=== PATIENT | female | born 1945 | race Caucasian/White ===

== ENCOUNTER → 2016-08-19 | Outpatient (CLI) | payer OTHER ==
[~2016-08-19] MED LIST: ACET-1311 PO; ATV1HP PO; CALC200T PO; LEVO50TA6 PO; PRLSR20 PO; SIMV40TA2 PO; SOLI10TA2 PO
--- NOTE | 2016-08-19 14:35 | MAMMOGRAPHY REPORT ---
UNILATERAL RIGHT DIGITAL DIAGNOSTIC MAMMOGRAM TOMOSYNTHESIS WITH CAD AND TARGETED RIGHT ULTRASOUND: 08/19/2016 CLINICAL HISTORY: 71-year-old woman presents for follow-up of 2 adjacent hypoechoic masses in the 10 :00 right breast seen on ultrasound. She was originally called back from screening in January 2016 for an asymmetry in the superior right breast on the MLO view. TECHNIQUE: Right breast tomosynthesis in addition to standard 2D mammography was performed. Current study was also evaluated with a Computer Aided Detection (CAD) system. COMPARISON: Comparison is made to exams dated: 02/19/2016 ultrasound, 02/19/2016 mammogram, 016 mammogram, 01/29/2015 mammogram, 12/26/2013 mammogram, and 06/12/2013 ultrasound - [facility]. BREAST COMPOSITION: There are scattered areas of fibroglandular density in the right breast. FINDINGS: The parenchymal pattern of the right breast is similar to the 2012 exam. There are a few benign-appearing calcifications. The asymmetry in the superior middle one third of the breast on th e MLO view is no longer seen, confirming benignity. No obvious new mass, focal area of architectura l distortion or suspicious calcifications are seen. Repeat targeted ultrasound was performed in the 10:00 axis of the right breast to reevaluate the 2 a djacent hypoechoic masses seen on prior ultrasound. (Some of the ultrasound images are mislabeled a s 11:00) In the 10:00 breast, 3 cm from the nipple, 2 hypoechoic lesions are again identified. The first measures approximately 3.6 x 3.8 x 3.9 mm, and the second measures 2.5 x 2.3 x 4.3 mm. The m argins are more ill-defined comparing to the prior ultrasound although the sizes do not appear signi ficantly changed. Nevertheless, given the microlobulated and indistinct nature of these masses on t he current exam, they are indeterminate and warranting further evaluation with tissue sampling. IMPRESSION: ACR BI-RADS CATEGORY 4: SUSPICIOUS, TARGETED ULTRASOUND ACR BI-RADS CATEGORY 4: SUSPICI OUS 1. Ultrasound guided core needle biopsy is recommended for 2 adjacent subcentimeter hypoechoic micr olobulated solid versus cystic masses in the 10:00 right breast, 3 cm from the nipple. These results and recommendations were discussed with the patient at the time of the exam. She tenta tively scheduled the biopsy prior to leaving our department. Approximately 10% of breast cancers are not detected with mammography. A negative mammographic repor t should not delay biopsy if a clinically suggestive mass is present. Elvira Barillas M.D. ay/:08/19/2016 12:53:54 Manager Operating: Hannah VALENTINE(T[place]u)([place]), [facility] letter sent: Abnormal 4/5 BI-RADS Code: ACR BI-RADS Category 4: Suspicious Ultrasound BI-RADS: ACR BI-RADS Category 4: Suspic ious
== END | disposition home or self-care (01) ==
LOC: C.MAMM 10:37
PROVIDERS: ATTEND Physician Assistant
DX: R92.2 Inconclusive mammogram (principal); N64.89 Other specified disorders of breast

== ENCOUNTER → 2016-08-31 | Outpatient (CLI) | payer OTHER ==
--- NOTE | 2016-08-31 11:50 | Discharge Instructions ---
Discharge Instructions Procedure Procedure Date: August 31, 2016. Reason for visit: Right Masses. Discharge Discharge Date: August 31, 2016. Discharge Diagnosis: post right breast ultrasound guided core biopsy Instructions Activity Recommendations: Additional Limitations (see below) Return to School/Work: no limitations Recommended Home Diet: No Limitations Provider Instructions: ACTIVITY RECOMMENDATIONS: * No lifting, pushing, pulling or exercising the affected side for three days. RETURN TO SCHOOL/WORK: * You may return to work/school after the procedure, but do not perform any strenuous activities for 24 to 48 hours. MEDICATIONS: * Tylenol (two 325 mg) every four to six hours if needed for mild pain (if not allergic to Tylenol). DIET: * Resume previous diet. SPECIAL CARE INSTRUCTIONS: * Keep biopsy site dry for 24 hours. May shower after 24 hours, but do not soak (bathe) incision. * May remove Tegaderm (plastic patch) tomorrow AFTER showering. * Leave the steri-strips on for one week. Allow the steri-strips to fall off by themselves. If not off after one week, you may remove them. You may place a Bandaid crosswise over the strips, if desired. * Apply ice 10 minutes on and 10 minutes off as needed. * Wear a bra at bedtime to sleep more comfortably for 2-3 days. * Your referring physician should have the results after approximately 5 to 7 business days. * Call for unusual bleeding, fever, drainage, etc or if you have any questions call [phone] during normal business hours or after hours call Dr Barillas, . FOLLOW UP VISIT: Follow-up with Referring Physician as scheduled. Allergies Coded Allergies: Grape (Unverified Allergy, Unknown, ., 05/06/13) Blaine Fiore Recommendations: Call your doctor if: * Temperature above 101 degrees * Pain not relieved by pain medicine ordered * There is increased drainage or redness from any incision * You have any unanswered questions or concerns. Your Doctors Instructions noted above were prepared by provider Elvira Barillas. Patient Signature Section: Patient Instructions Signature Page Twyla Gordon Patient (or Guardian) Signature/Date: I have read and understand the instructions given to me by my caregivers. Caregiver/RN/Doctor Signature/Date: The above-named patient and/or guardian has received patient instructions on this date. + Original Patient Signature Page (only) stays with chart. Please make copy for patient.
--- NOTE | 2016-08-31 14:26 | MAMMOGRAPHY REPORT ---
ULTRASOUND GUIDED BIOPSY RIGHT BREAST: 08/31/2016 CLINICAL HISTORY: 2 adjacent nearly abutting hypoechoic subcentimeter solid versus cystic masses in the 10:00 to 10:30 right breast, 3 cm from the nipple. Patient presented for ultrasound-guided core needle biopsy. COMPARISON: Comparison is made to exams dated: 08/19/2016 mammogram, 02/19/2016 ultrasound, 02/19/20 16 mammogram, 02/03/2016 mammogram, 01/29/2015 mammogram, and 12/26/2013 mammogram - [facility]. PATIENT CONSENT: The procedure, risks and benefits were discussed with the patient and informed writ ten consent was obtained. Specific risks to this procedure include: bleeding, infection, puncture of adjacent structure, nontarget biopsy, sampling error, metal allergy and medication reaction. PROCEDURE DESCRIPTION: A time out was performed and the right breast was agreed as the site of biops y. The skin was prepped and draped in the usual sterile fashion. The adjacent hypoechoic solid versu s cystic masses in the 10:00 to 10:30 right breast or chosen as the target for biopsy. Subcutaneous and intraparenchymal 1% buffered lidocaine was administered as local anesthesia. A skin incision was made. Through the incision, 5 samples were taken with a 14 gauge Achieve biopsy device. A metallic marker was placed at the biopsy site, between the 2 masses. Hemostasis was achieved after manual co mpression. The patient tolerated the procedure well and there was no immediate complication. The sa mples were sent to pathology department in an appropriately labeled container. The rounded mass was noted to be decreasing in size after biopsy samples, suggesting cystic nature. Postprocedure right CC and ML 2-D digital and tomosynthesis images were obtained. A new ribbon-shap ed metallic biopsy marker and no significant hematoma is identified in the 10:00 middle one third of the right breast, at the site of the biopsied hypoechoic adjacent solid versus cystic masses identi fied on ultrasound. IMPRESSION: ULTRASOUND GUIDED BIOPSY Status post ultrasound-guided core needle biopsy of 2 adjacent indeterminate solid versus cystic mas ses in the 10:00 to 10:30 right breast, with biopsy marker placed at the site. The patient will receive notification of the biopsy results from her referring physician. Elvira Barillas M.D. ay/:08/31/2016 12:10:50 Supervisor Special Education: Hannah VALENTINE(R)(M), [facility]
== END | disposition home or self-care (01) ==
LOC: C.MAMM 10:38
PROVIDERS: ATTEND Physician Assistant
DX: N63 Unspecified lump in breast (principal); D24.1 Benign neoplasm of right breast; N60.89 Other benign mammary dysplasias of unspecified breast